=== PATIENT | female | born 1955 | race Caucasian/White ===

== ENCOUNTER → 2023-12-29 11:01 | Outpatient (REF) | payer MEDICARE, OTHER, SELFPAY | LOC: WDC 11:01 | PROVIDERS: ATTENDING PHYSICIAN Obstetrics & Gynecology Gynecology; FAMILY PHYSICIAN Family Medicine | DX: Z12.31 Encounter for screening mammogram for malignant neoplasm of breast (principal) | CPT/HCPCS: 77063; 77067 ==

== ENCOUNTER → 2024-02-01 17:50 | Outpatient (REF) | payer MEDICARE, OTHER, SELFPAY | LOC: RAD 17:50 | PROVIDERS: ATTENDING PHYSICIAN Registered Nurse Ambulatory Care; FAMILY PHYSICIAN Family Medicine | DX: M79.89 Other specified soft tissue disorders (principal); M79.605 Pain in left leg | CPT/HCPCS: 93971 ==

== ENCOUNTER → 2024-12-31 13:02 | Outpatient (REF) | payer MEDICARE, OTHER, SELFPAY | LOC: WDC 13:02 | PROVIDERS: ATTENDING PHYSICIAN Family Medicine | DX: Z12.31 Encounter for screening mammogram for malignant neoplasm of breast (principal) | CPT/HCPCS: 77063; 77067 ==

== ENCOUNTER → 2025-01-22 13:04 | Outpatient (REF) | payer MEDICARE, OTHER, SELFPAY | LOC: HWRAD 13:04 | PROVIDERS: ATTENDING PHYSICIAN Physician Assistant; FAMILY PHYSICIAN Family Medicine | DX: M81.0 Age-related osteoporosis without current pathological fracture (principal) | CPT/HCPCS: 77080 ==

== ENCOUNTER → 2025-01-28 09:14 | Outpatient (REF) | payer MEDICARE, OTHER, SELFPAY | LOC: WDC 09:14 | PROVIDERS: ATTENDING PHYSICIAN Family Medicine | DX: R92.8 Other abnormal and inconclusive findings on diagnostic imaging of breast (principal) | CPT/HCPCS: 76642 ==

== ENCOUNTER → 2025-06-04 06:19 | Day surgery (SDC) | payer MEDICARE, OTHER, SELFPAY | LOC: GI 06:19 | PROVIDERS: ATTENDING PHYSICIAN Specialist; FAMILY PHYSICIAN Family Medicine | DX: Z12.11 Encounter for screening for malignant neoplasm of colon (principal); K57.30 Diverticulosis of large intestine without perforation or abscess without bleeding; K56.2 Volvulus | CPT/HCPCS: G0105 ==